=== PATIENT | male | born 1970 | race Caucasian/White ===

== ENCOUNTER 2023-05-07 20:10 | Emergency (ER) | payer OTHER, SELFPAY ==
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
[2023-05-07 20:20] VITALS: BP 138/75; PULSE 90; RESP 20; TEMP 37; O2SAT 99
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
[2023-05-07 21:08] VITALS: BP 132/76; PULSE 80; RESP 16; TEMP 36.6; O2SAT 98
--- NOTE | 2023-05-07 21:23 | PC.NURSE ---
pt discharged, but him& family sitting in waiting room refusing to leave
== END 2023-05-07 21:26 | disposition home or self-care (01) ==
PROVIDERS: Emergency Provider Family Medicine
DX: S06.0X0A Concussion without loss of consciousness, initial encounter (principal); V86.56XA Driver of dirt bike or motor/cross bike injured in nontraffic accident, initial encounter
CPT/HCPCS: 70450; 99284